=== PATIENT | female | born 1970 | race Caucasian/White ===

== ENCOUNTER 2019-11-16 15:04 | Emergency (ER) | payer BC ==
[2019-11-16] MEDS ORDERED: Ondansetron 4 MG/2 ML SDV ONE (15:16)
[2019-11-16] MEDS ORDERED: Ondansetron 4 MG/2 ML SDV IVPUSH ONE (15:20)
--- NOTE | 2019-11-16 15:55 | CT ---
[id number] CT/CT Head WO IV EXAM: CT Head WO IV CLINICAL DATA: VERTIGO COMPARISON: CORRELATION IS MADE WITH APRIL 07, 2016 FINDINGS: There is no mass or mass effect. There is no hemorrhage or hydrocephalus. There are no extra-axial fluid collections. There are no sites of abnormal attenuation. IMPRESSION: NO PLAIN CT EVIDENCE OF ACUTE INTRACRANIAL PROCESS. Aleksandar Barragan MD 11/16/19 [id number] Thank you for allowing us to participate in the care of your patient.
--- NOTE | 2019-11-16 16:04 | EDM.PDOC ---
ED HPI GENERAL MEDICAL PROBLEM - General Chief Complaint: Neuro Symptoms/Deficits Stated Complaint: VERTIGO Time Seen by Provider: 11/16/19 15:38 Source of Information: Reports: Patient, Significant Other History Limitations: Reports: No Limitations - History of Present Illness INITIAL COMMENTS - FREE TEXT/NARRATIVE: Patient presents with vertigo and vomiting. She has been dealing with it intermittently since it started about 4 weeks ago. She has had PT with [facility] 8 times and usually has short-term relief afterward. Meclizine doesn't help. Overall the trend seemed to be gradually improving over the past week until today when she bent forward to touch her toes and stretch her back and legs after a 4-hour car ride. That triggered the worst vertigo she has had as well as an episode of vomiting. Dr. Shepard called me before patient arrived with the recent course of symptoms and treatments and advised head CT today. - Related Data Allergies Allergy/AdvReac Type Severity Reaction Status Date / Time No Known Drug Allergies Allergy Cannot Verified 11/16/19 15:31 Remember Home Meds: Home Meds Meclizine HCl 25 mg PO TID PRN 11/16/19 [History] Past Medical History HEENT History: Reports: Impaired Vision [employer] History: Reports: Neurological History: Reports: Vertigo - Past Surgical History HEENT Surgical History: Reports: None Social & Family History - Tobacco Use Smoking Status *Q: Never Smoker - Caffeine Use Caffeine Use: Reports: Soda - Recreational Drug Use Recreational Drug Use: No ED ROS GENERAL - Review of Systems Review Of Systems: See Below Constitutional: Denies: Fever, Chills, Malaise, Weakness HEENT: Reports: Hearing Loss (chronic, R>L; worked up with MRI and ENT or audiology consult; usually wears hearing aids), Vertigo. Denies: Ear Pain (no ringing or roaring changes), Throat Pain, Vision Change Respiratory: Denies: Shortness of Breath, Cough Cardiovascular: Denies: Chest Pain, Syncope GI/Abdominal: Reports: Nausea, Vomiting. Denies: Abdominal Pain : Denies: Dysuria, Flank Pain Musculoskeletal: Denies: Neck Pain, Shoulder Pain, Arm Pain, Back Pain, Hand Pain, Leg Pain Skin: Denies: Cyanosis, Jaundice, Mottled, Pallor, Diaphoresis Neurological: Reports: Dizziness. Denies: Confusion, Headache, Seizure, Syncope, Trouble Speaking, Difficulty Walking Psychiatric: Denies: Agitation, Anxiety, Confusion ED EXAM, DIZZINESS - Physical Exam Exam: See Below Exam Limited By: No Limitations General Appearance: Alert, WD/WN, No Apparent Distress Eye Exam: Bilateral Eye: EOMI, Normal Inspection (full visual tinoco), PERRL Ears: Normal External Exam, Hearing Grossly Normal Nose: Normal Inspection, No Blood Throat/Mouth: Normal Inspection, Normal Lips, Normal Voice, No Airway Compromise Head Exam: Atraumatic, Normocephalic Vertigo: reproducible (with any head movement; I didn't repeat the [place] test today as she has had it and the [facility] multiple times recently) Neck: Normal Inspection, Limited Range of Motion (only by nausea and vertigo) Respiratory/Chest: No Respiratory Distress, Lungs Clear, Normal Breath Sounds, No Accessory Muscle Use Cardiovascular: Regular Rate, Rhythm, No Murmur GI/Abdominal: No Distention Neurological: Alert, Normal Mood/Affect, CN II-XII Intact, Oriented x 3 Back Exam: Normal Inspection, Full Range of Motion. No: CVA Tenderness (L), CVA Tenderness (R) Extremities: Normal Inspection, Normal Range of Motion Psychiatric: Normal Affect, Normal Mood Skin Exam: Warm, Dry, Intact, Normal Color, No Rash Course - Vital Signs Last Recorded V/S: Last Vital Signs Temp 97.0 F 11/16/19 15:25 Pulse 69 11/16/19 15:25 Resp 18 11/16/19 15:25 BP 166/88 H 11/16/19 15:25 Pulse Ox 99 11/16/19 15:25 - Orders/Labs/Meds Orders: Active Orders 24 hr Category Date Time Status Head wo Cont [CT] Stat Exams 11/16/19 15:27 Taken Meds: Medications Discontinued Medications Generic Name Dose Route Start Last Admin Trade Name Freerma PRN Reason Stop Dose Admin Ondansetron HCl Confirm 11/16/19 15:16 Zofran Administered 11/16/19 15:17 Dose 8 mg .ROUTE .STK-MED ONE Ondansetron HCl 8 mg 11/16/19 15:20 11/16/19 15:20 Zofran IVPUSH 11/16/19 15:21 8 mg ONETIME ONE Administration - Re-Assessments/Exams Free Text/Narrative Re-Assessment/Exam: 11/16/19 16:[address] shows no evidence of mass, bleed or other acute intracranial process. I discussed findings and recommendations with patient and her . She has been doing all of the usual treatments for BPPV/vertigo with short-term success but the symptoms always return. I advised a neurology consult and recommended she call her PCP tomorrow morning to discuss this and other possible options. The Zofran seems to be helping a little. Patient discharged to home in stable condition. Departure - Departure Time of Disposition: 16:04 Disposition: Home, Self-Care 01 Condition: Good Clinical Impression: Vertigo - Discharge Information Referrals: Maribeth Cheatham MD [Primary Care Provider] - Additional Instructions: Call Dr. Shepard's office tomorrow morning to see what she recommends for the next step. A neurology consult would likely be a good option. Sepsis Event Note (ED) - Evaluation Sepsis Screening Result: No Definite Risk - Focused Exam Vital Signs: Vital Signs Temp Pulse Resp BP Pulse Ox 11/16/19 15:25 97.0 F 69 18 166/88 H 99 - My Orders Last 24 Hours: My Active Orders 11/16/19 15:27 Head wo Cont [CT] Stat - Assessment/Plan Last 24 Hours: My Active Orders 11/16/19 15:27 Head wo Cont [CT] Stat
[2019-11-16] MEDS ORDERED: Ondansetron 4 MG Tab.DIS PO ONE (16:13)
== END 2019-11-16 16:20 | disposition home or self-care (01) ==
LOC: KA.ED 15:04
DX: R42 Dizziness and giddiness (principal); R11.2 Nausea with vomiting, unspecified; H53.40 Unspecified visual field defects
CPT/HCPCS: 70450; 96374; 99284-25; A9270-GY; J2405